=== PATIENT | male | born 1985 | race African-American/Black ===

== ENCOUNTER 2022-06-16 11:20 | Emergency (ER) | payer MEDICAID ==
[2022-06-16] MEDS ORDERED: CEPHALEXIN500 M1 PO (13:24)
== END 2022-06-16 12:43 | disposition home or self-care (01) ==
LOC: ED 11:20
DX: S61.210A Laceration without foreign body of right index finger without damage to nail, initial encounter (principal); W26.0XXA Contact with knife, initial encounter; Y93.89 Activity, other specified; Y92.89 Other specified places as the place of occurrence of the external cause; Y99.8 Other external cause status